=== PATIENT | female | born 1985 | race Caucasian/White ===

== ENCOUNTER 2018-06-14 18:21 | Emergency (ER) | payer OTHER ==
--- NOTE | 2018-06-14 18:43 | ER Document Report ---
ED Medical Screen (RME) - General Chief Complaint: Chest Pain Stated Complaint: THROAT PAIN Time Seen by Provider: 06/14/18 18:38 Primary Care Provider: SCOTT FORD MD [Primary Care Provider] - Follow up as needed Mode of Arrival: Ambulatory Information source: Patient TRAVEL OUTSIDE OF THE [place] IN LAST 30 DAYS: No - HPI Patient complains to provider of: cp Onset: Yesterday - pt. with c/o onset of SSCP since yesterday. Took ASA earllier today - Related Data Allergies/Adverse Reactions: adhesive [Adhesive] Allergy (Verified 02/16/15 22:09) Coconut * [Coconut] Allergy (Verified 08/06/10 03:09) Past Medical History Psychiatric Medical History: Reports: Hx Depression Past Surgical History: Reports: Hx Section - Immunizations Hx Diphtheria, Pertussis, Tetanus Vaccination: Yes Physical Exam - Vital signs Vitals: Temp Pulse Resp BP Pulse Ox 97.8 F 86 14 135/79 H 100 06/14/18 18:27 06/14/18 18:27 06/14/18 18:27 06/14/18 18:27 06/14/18 18:27 Course - Vital Signs Vital signs: Temp Pulse Resp BP Pulse Ox 97.8 F 86 14 135/79 H 100 06/14/18 18:27 06/14/18 18:27 06/14/18 18:27 06/14/18 18:27 06/14/18 18:27 Doctor's Discharge - Discharge Referrals: SCOTT FORD MD [Primary Care Provider] - Follow up as needed
--- NOTE | 2018-06-14 18:59 | RADIOLOGY REPORT (SQ) ---
EXAM DESCRIPTION: CHEST 2 VIEWS COMPLETED DATE/TIME: 06/14/2018 6:47 pm REASON FOR STUDY: cp COMPARISON: 02/26/2015 TECHNIQUE: Frontal and lateral radiographic views of the chest acquired. NUMBER OF VIEWS: Two view. LIMITATIONS: None. FINDINGS: LUNGS AND PLEURA: No pneumothorax. No consolidation or pleural effusion. MEDIASTINUM AND HILAR STRUCTURES: Stable. HEART AND VASCULAR STRUCTURES: Stable. BONES: No acute findings. HARDWARE: None in the chest. OTHER: No other significant finding. IMPRESSION: NO ACUTE FINDINGS. TECHNICAL DOCUMENTATION: JOB ID: [id number] [id number] 2010 [employer]- All Rights Reserved Reading location - IP/workstation name: [email or web address]
--- NOTE | 2018-06-14 19:16 | EKG REPORT ---
SEVERITY:- ABNORMAL ECG - SINUS RHYTHM PROBABLE LEFT VENTRICULAR HYPERTROPHY INFERIOR Q WAVES, PROBABLY NORMAL VARIATION : Confirmed by: Geovanna Bonner 14-Jun-2018 19:16:14
[2018-06-14 19:23] LABS: ABSOLUTE EOSINOPHILS # (AUTO) 0.1 10^3/uL (0.0-0.6); ABSOLUTE LYMPHOCYTES (AUTO) 1.8 10^3/uL (0.5-4.7); ABSOLUTE MONOCYTES (AUTO) 0.4 10^3/uL (0.1-1.4); ABSOLUTE NEUT (AUTO) 4.3 10^3/uL (1.7-8.2); BASOPHILS % (AUTO) 0.4 % (0-2); EOSINOPHILS % (AUTO) 1.5 % (0-6); HEMATOCRIT 38.7 % (36.0-47.0); HEMOGLOBIN 14.1 g/dL (12.0-15.5); LYMPHOCYTES % (AUTO) 26.5 % (13-45); MEAN CORPUSCULAR HEMOGLOBIN 32.6 pg (27.0-33.4); MEAN CORPUSCULAR HGB CONC 36.4 g/dL (32.0-36.0); MEAN CORPUSCULAR VOLUME 90 fl (80-97); MONOCYTES % (AUTO) 6.6 % (3-13); PLATELET COUNT 239 10^3/uL (150-450); RED BLOOD COUNT 4.32 10^6/uL (3.72-5.28); RED CELL DISTRIBUTION WIDTH 12.6 % (11.5-14.0); TOTAL CELLS COUNTED % (AUTO) 100 %; WHITE BLOOD COUNT 6.6 10^3/uL (4.0-10.5)
[2018-06-14 19:42] LABS: ALANINE AMINOTRANSFERASE 29 U/L (9-52); ALKALINE PHOSPHATASE 63 U/L (38-126); ANION GAP 10 (5-19); ASPARTATE AMINO TRANSFERASE 23 U/L (14-36); BILIRUBIN,DIRECT 0.1 mg/dL (0.0-0.4); BILIRUBIN,TOTAL 0.7 mg/dL (0.2-1.3); BLOOD UREA NITROGEN 10 mg/dL (7-20); CALCIUM 10.6 mg/dL (8.4-10.2); CARBON DIOXIDE 27 mmol/L (22-30); CHLORIDE 104 mmol/L (98-107); CREATINE KINASE 38 U/L (30-135); GLUCOSE 98 mg/dL (75-110); POTASSIUM 4.2 mmol/L (3.6-5.0); SODIUM 140.7 mmol/L (137-145); TOTAL PROTEIN 8.1 g/dL (6.3-8.2)
[2018-06-14 19:54] LABS: CREATINE KINASE MB < 0.22 ng/mL (<4.55); TROPONIN I < 0.012 ng/mL
--- NOTE | 2018-06-14 20:37 | ER Document Report ---
ED General - General Chief Complaint: Chest Pain Stated Complaint: THROAT PAIN Time Seen by Provider: 06/14/18 18:38 Primary Care Provider: SCOTT FORD MD [Primary Care Provider] - Follow up as needed Mode of Arrival: Ambulatory Notes: Patient is a 32-year-old female that comes to the emergency department for chief complaint of pains across her chest since this morning and also intermittently yesterday. Pain is still intermittent today, she states it feels like it is underneath her collarbones, sometimes along her lower ribs, mainly on the right. She states it is worse with deep breaths but only at times. She states she had influenza 2 weeks ago and still has an occasional cough. She denies shortness of breath, fever chills, nausea or vomiting. She states earlier she felt a little bit of tightness in her throat but this resolved. She denies dysphagia. She does not smoke, she denies alcohol or recreational drugs, she reports past medical history of , anxiety/depression, panic attacks, and POTS. TRAVEL OUTSIDE OF THE [place] IN LAST 30 DAYS: No - Related Data Allergies/Adverse Reactions: adhesive [Adhesive] Allergy (Verified 06/14/18 19:38) Coconut * [Coconut] Allergy (Verified 06/14/18 19:38) Past Medical History - General Information source: Patient - Social History Smoking Status: Never Smoker Chew tobacco use (# tins/day): No Frequency of alcohol use: None Drug Abuse: None Lives with: Family Family History: Hypertension Patient has suicidal ideation: No Patient has homicidal ideation: No Renal/ Medical History: Denies: Hx Peritoneal Dialysis Psychiatric Medical History: Reports: Hx Depression Past Surgical History: Reports: Hx Section - Immunizations Hx Diphtheria, Pertussis, Tetanus Vaccination: Yes Review of Systems - Review of Systems Constitutional: No symptoms reported EENT: No symptoms reported Cardiovascular: See HPI Respiratory: See HPI Gastrointestinal: No symptoms reported Genitourinary: No symptoms reported Female Genitourinary: No symptoms reported Musculoskeletal: See HPI Skin: No symptoms reported Hematologic/Lymphatic: No symptoms reported Neurological/Psychological: No symptoms reported Physical Exam - Vital signs Vitals: Temp Pulse Resp BP Pulse Ox 97.8 F 86 14 135/79 H 100 06/14/18 18:27 06/14/18 18:27 06/14/18 18:27 03/02/19 18:27 06/14/18 18:27 - Notes Notes: GENERAL: Alert, interacts well. No acute distress. HEAD: Normocephalic, atraumatic. EYES: Pupils equal, round, and reactive to light. Extraocular movements intact. ENT: Oral mucosa moist, tongue midline. Oropharynx unremarkable. Airway patent. Nares patent, no nasal septal hematoma, TM's intact. NECK: Full range of motion. Supple. Trachea midline. LUNGS: Clear to auscultation bilaterally, no wheezes, rales, or rhonchi. No respiratory distress. Minimal tenderness generally with palpation over the chest, nonspecific, no guarding or crepitus. HEART: Regular rate and rhythm. No murmur ABDOMEN: Soft, non-tender. Non-distended. Bowel sounds present in all 4 quadrants. GENITOURINARY: Deferred EXTREMITIES: Moves all 4 extremities spontaneously. No edema, normal radial and dorsalis pedis pulses bilaterally. No cyanosis. BACK: no cervical, thoracic, lumbar midline tenderness. No saddle anesthesia, normal distal neurovascular exam. NEUROLOGICAL: Alert and oriented x3. Normal speech. [cranial nerves II through XII grossly intact]. PSYCH: Patient talks rapidly, glancing around, appears mildly anxious. SKIN: Warm, dry, normal turgor. No rashes or lesions noted. Course - Re-evaluation Re-evalutation: Patient with occasional cough, however she has no tachypnea, clear lungs, no hypoxia, no tachycardia. Symptoms are worse with inspiration. Patient with some anxiety on examination as well. Otherwise unremarkable exam. CBC unremarkable, chemistry unremarkable, troponin is negative despite symptoms going on more than 12 hours. Chest x-ray unremarkable. EKG sinus rhythm with no T wave inversions or ST segment changes in consecutive leads. Unremarkable TX and QTC intervals. I discussed the patient. Her PERC score is 0. I have very low suspicion of pulmonary embolism based on her benign evaluation and symptoms. Her pain with inspiration and recent illness with residual cough is suggestive of costochondritis and pleurisy, she does have some chest wall pain on exam as well. Discussed workup, options. Decision was made to treat with dexamethasone. I did discuss with patient follow-up, she states that she does have good follow-up, she is not suicidal or homicidal, she is no longer anxious in appearance after discussion, discussed return precautions in detail, patient states satisfaction and agreement. Stable at time of discharge. - Vital Signs Vital signs: Temp Pulse Resp BP Pulse Ox 98.0 F 78 16 122/74 98 06/14/18 21:09 06/14/18 21:09 06/14/18 21:09 06/14/18 21:09 06/14/18 21:09 - Laboratory Result Diagrams: 06/14/18 19:00 06/14/18 19:00 Laboratory results interpreted by me: 06/14/18 06/14/18 19:00 [facility] Calcium 10.6 H Discharge - Discharge Clinical Impression: Chest pain Qualifiers: Chest pain type: unspecified Qualified Code(s): R07.9 - Chest pain, unspecified Condition: Stable Disposition: HOME, SELF-CARE Additional Instructions: Your examination and workup today is reassuring. This is likely pleurisy, you have been treated for this, this takes time to resolve. You can take Tylenol or ibuprofen if needed for pain. Stay hydrated. Follow-up with primary care for additional evaluation and management. Return if you worsen including passing out, vomiting, fever, difficulty breathing, severe worsening pain, or any other concerning or worsening symptoms. Referrals: SCOTT FORD MD [Primary Care Provider] - Follow up as needed
[2018-06-14] MEDS ORDERED: DEXAMETHASONE SOD PHOS INJ 10 MG/1 ML VIAL IM ONE (20:46)
[2018-06-14 21:17] VITALS: BP 122/74
== END 2018-06-14 21:20 | disposition home or self-care (01) ==
LOC: ER 18:21
DX: R07.89 Other chest pain (principal); R05 Cough; F41.9 Anxiety disorder, unspecified; Z91.048 Other nonmedicinal substance allergy status; Z91.018 Allergy to other foods
CPT/HCPCS: 93005; 99285; 96372; 36415; 82553; 82550; 84703; 85025; 80053; 84484; 71046; 93010; J1100

== ENCOUNTER 2019-11-07 11:09 | Emergency (ER) | payer SELFPAY ==
[2019-11-07 11:33] VITALS: BP 107/65
--- NOTE | 2019-11-07 11:36 | ER Document Report ---
ED ENT - General Chief Complaint: Ear Pain Stated Complaint: LEFT EAR PAIN, SWELLING Time Seen by Provider: 11/07/19 11:26 Primary Care Provider: SCOTT FORD MD [NO LOCAL MD] - Follow up as needed DAMARIS HENRY MD [ACTIVE STAFF] - 11/09/19 Mode of Arrival: Ambulatory Information source: Patient Notes: 34-year-old female presented to ED for pain to her left ear. She states she went to the beach last week and her ear started hurting on Saturday. She went to the urgent care they put her on amoxicillin and some eardrops. She states the ear was more painful and swollen she went back to the urgent care they put her on different antibiotics and different eardrops. She states all of these visits for telemedicine and no one has looked in her ear yet. She states it continues to hurt. I did look in the left ear she does have otitis externa she is on Polytrim eardrops. She does not have a otitis media. I did change her eardrops to Ciprodex and wrote a prescription for Ciprodex. I instructed her use Tylenol or Motrin for ear pain. TRAVEL OUTSIDE OF THE [place] IN LAST 30 DAYS: No - HPI Patient complains to provider of: Ear problem Onset: Last week Onset/Duration: Persistent Quality of pain: Sharp, Stabbing Severity: Severe Pain Level: 5 Location of pain: Ears Associated symptoms: Ear pain, Ear drainage, Sinus pain, Sinus drainage Similar symptoms previously: Yes Recently seen / treated by doctor: Yes - Related Data Allergies/Adverse Reactions: adhesive [Adhesive] Allergy (Verified 06/14/18 19:38) Coconut * [Coconut] Allergy (Verified 06/14/18 19:38) Home Medications: Cefdinir Past Medical History - General Information source: Patient - Social History Smoking Status: Never Smoker Frequency of alcohol use: Occasional Drug Abuse: None Lives with: Family Family History: Hypertension Patient has suicidal ideation: No Patient has homicidal ideation: No - Past Medical History Cardiac Medical History: Reports: None Pulmonary Medical History: Reports: None EENT Medical History: Reports: Eyes Neurological Medical History: Reports: None Endocrine Medical History: Reports: None Renal/ Medical History: Reports: None Malignancy Medical History: Reports: None GI Medical History: Reports: None Musculoskeletal Medical History: Reports None Skin Medical History: Reports None Psychiatric Medical History: Reports: Hx Depression Traumatic Medical History: Reports: None Infectious Medical History: Reports: None Past Surgical History: Reports: Hx Section - Immunizations Hx Diphtheria, Pertussis, Tetanus Vaccination: Yes Review of Systems - Review of Systems Constitutional: No symptoms reported EENT: No symptoms reported Cardiovascular: No symptoms reported Respiratory: No symptoms reported Gastrointestinal: No symptoms reported Genitourinary: No symptoms reported Female Genitourinary: No symptoms reported Musculoskeletal: No symptoms reported Skin: No symptoms reported Hematologic/Lymphatic: No symptoms reported Neurological/Psychological: No symptoms reported -: Yes All other systems reviewed and negative Physical Exam - Vital signs Vitals: Temp Pulse Resp BP Pulse Ox 98.5 F 103 H 16 107/65 99 11/07/19 11:14 11/07/19 11:14 11/07/19 11:14 11/07/19 11:14 11/07/19 11:14 Interpretation: Normal - General General appearance: Appears well, Alert - HEENT Head: Normocephalic, Atraumatic Eyes: Normal Pupils: PERRL Ears: Other External canal: Erythema, Swollen Tympanic membrane: Normal - Painful to touch or manipulate Sinus: Normal Nasal: Purulent discharge, Swelling Mouth/Lips: Normal Mucous membranes: Normal Pharynx: Post nasal drainage Neck: Normal - Respiratory Respiratory status: No respiratory distress Chest status: Nontender Breath sounds: Normal Chest palpation: Normal - Cardiovascular Rhythm: Regular Heart sounds: Normal auscultation Murmur: No - Abdominal Inspection: Normal Distension: No distension Bowel sounds: Normal Tenderness: Nontender Organomegaly: No organomegaly - Back Back: Normal, Nontender - Extremities General upper extremity: Normal inspection, Nontender, Normal color, Normal ROM, Normal temperature General lower extremity: Normal inspection, Nontender, Normal color, Normal ROM, Normal temperature, Normal weight bearing. No: Keaton's sign - Neurological Neuro grossly intact: Yes Cognition: Normal Orientation: AAOx4 Jihan Coma Scale Eye Opening: Spontaneous Jihan Coma Scale Verbal: Oriented [place] Coma Scale Motor: Obeys Commands [place] Coma Scale Total: 15 Speech: Normal Motor strength normal: LUE, RUE, LLE, RLE Sensory: Normal - Psychological Associated symptoms: Normal affect, Normal mood - Skin Skin Temperature: Warm Skin Moisture: Dry Skin Color: Normal Course - Re-evaluation Re-evalutation: 11/07/19 12:28 [facility] and stated that the patient cannot afford the Ciprodex. They recommended given Cipro without the steroid and her continuing with her neomycin with steroid and she already has it. I agreed to this treatment as long as the patient follows up with ears nose and throat on Saturday. I asked the pharmacist to please reiterate the importance of following up with Dr. Henry on Saturday reevaluation. The pharmacy stated this is what they would do and they will do this prescription. - Vital Signs Vital signs: Temp Pulse Resp BP Pulse Ox 98.5 F 103 H 16 107/65 99 11/07/19 11:14 11/07/19 11:14 11/07/19 11:14 11/07/19 11:14 11/07/19 11:14 Discharge - Discharge Clinical Impression: Left otitis externa Qualifiers: Otitis externa type: unspecified type Chronicity: acute Qualified Code(s): H60.502 - Unspecified acute noninfective otitis externa, left ear Condition: Stable Disposition: HOME, SELF-CARE Additional Instructions: OTITIS EXTERNA: You have otitis externa -- an infection of the outer ear canal. This can be very painful. It's sometimes called "swimmer's ear," because it often occurs after prolonged water exposure. Many things, such as earwax and dirt in the ear, can contribute to it. The usual treatment is antibiotic/antiinflammatory ear drops. Occasionally, a wick will be placed in the ear to draw in the medicine. If the infection is severe, an oral antibiotic may be prescribed. Pain medication is often needed. Avoid getting water in the ear. Outer ear infections often take longer to heal than you might expect. Some tenderness and ache in the ear may persist for about two weeks. See your physician if you fail to improve as expected. Call the doctor at once if you develop fever, increasing swelling (particularly if it makes your ear "poke out"), severe headache, stiff neck, or decreased hearing. USE OF EAR DROPS: Your ear drops won't do much good if they don't get all the way in. To help the ear drops penetrate all the way to the ear drum, use the following technique. If you encounter problems of any kind, notify the physician. (1) Lay your head sideways on a pillow. (2) Place the dropper tip just barely inside the ear canal, almost touching the bottom side of the canal. The liquid is tolerated better on the bottom of the canal. (3) Squeeze out the appropriate amount of medicine, and remove the dropper. (4) Grab the back of the ear (just behind the ear canal) between your index finger and thumb. (5) Tug up, then let the ear drop back. Repeat several times. This pumps the medicine down. (6) Wait five minutes, then place a cotton ball in the ear canal to catch and hold the medicine. CIPROFLOXACIN: You have been given an antibacterial agent, ciprofloxacin (Cipro). This medicine is not related to the penicillins, sulfas, cephalosporins, or tetracyclines. It is often given to patients who are allergic to these drugs. It has been chosen for you either because other drugs are not appropriate, or because of the nature of your problem. Cipro should not be taken with antacids, as these can decrease its effectiveness. It can be taken without regard to meals. CIPRO SHOULD NOT BE TAKEN BY CHILDREN, NURSING WOMEN, OR WOMEN. Although Cipro is usually well-tolerated, common side effects can include nausea and diarrhea. Contact your doctor if you experience any unusual symptoms while on this medication, such as joint pain or swelling, shortness of breath, wheezing, faintness, or hives. USE OF ACETAMINOPHEN (Tylenol): Acetaminophen may be taken for pain relief or fever control. It's much safer than aspirin, offering a wider range of "safe" dosages. It is safe during . Some brand names are Tylenol, Panadol, Datril, Anacin 3, Tempra, and Liquiprin. Acetaminophen can be repeated every four hours. The following are maximum recommended dosages: WEIGHT Dose Drops Elixir Chewable(80mg) (LBS.) drprs=droppers tsp=teaspoon 6 40 mg 0.4 ml (1/2) 6-11 80 mg 0.8 ml (full) tsp 1 tab 12-16 120 mg 1 1/2 drprs 3/4 tsp 1 1/2 tabs 17-23 160 mg 2 drprs 1 tsp 2 tabs 24-30 240 mg 3 drprs 1 1/2 tsp 3 tabs 30-35 320 mg 2 tsp 4 tabs 36-41 360 mg 2 1/4 tsp 4 1/2 tabs 42-47 400 mg 2 1/2 tsp 5 tabs 48-53 480 mg 3 tsp 6 tabs 54-59 520 mg 3 1/4 tsp 6 1/2 tabs 60-64 560 mg 3 1/2 tsp 7 tabs 65-70 600 mg 3 3/4 tsp 7 1/2 tabs 71-76 640 mg 4 tsp 8 tabs 77-82 720 mg 4 1/2 tsp 9 tabs 83-88 800 mg 5 tsp 10 tabs >89 pounds or adults 650 mg to 900 mg Acetaminophen can be repeated every four hours. Maximum dose not to exceed 4000 mg a day. These maximum recommended dosages are slightly higher than the dosages written on the product container, but these dosages are very safe and below the toxic dosage for acetaminophen. FOLLOW-UP CARE: If you have been referred to a physician for follow-up care, call the physicians office for an appointment as you were instructed or within the next two days. If you experience worsening or a significant change in your symptoms, notify the physician immediately or return to the Emergency Department at any time for re-evaluation. Prescriptions: Ciprofloxacin HCl/Dexameth [Ciprodex Otic Suspension] 4 drop LFT_EAR BID 10 Days #1 bottle Referrals: SCOTT FORD MD [NO LOCAL MD] - Follow up as needed DAMARIS HENRY MD [ACTIVE STAFF] - 11/09/19
== END 2019-11-07 11:40 | disposition home or self-care (01) ==
LOC: ER 11:09
DX: H60.502 Unspecified acute noninfective otitis externa, left ear (principal); H92.02 Otalgia, left ear; J34.89 Other specified disorders of nose and nasal sinuses; R09.82 Postnasal drip; Z91.048 Other nonmedicinal substance allergy status; Z91.018 Allergy to other foods
CPT/HCPCS: 99282